=== PATIENT | female | born 1955 | race Caucasian/White ===

== ENCOUNTER 2018-08-08 13:49 | Emergency (ER) | payer BC ==
--- NOTE | 2018-08-08 13:55 | PDOC ---
Rapid Medical Evaluation Time Seen by Provider: 08/08/18 13:54 Medical Evaluation: 08/08/18 13:54 I have performed a brief in-person evaluation of this patient. The patient presents with a chief complaint of: N/V since this morning, "ear has been clogged", feeling dizzy Pertinent physical exam findings: no focal neuro deficits I have ordered the following: labs The patient will proceed to the ED for further evaluation.
[2018-08-08 13:58] VITALS: TEMP 98; BMI 32.3
[2018-08-08] MEDS ORDERED: ONDANSETRON 4 MG/2 ML VIAL IVPUSH ONE (15:50)
[2018-08-08] MEDS ORDERED: MECLIZINE HCL 25 MG TABLET (FP) PO ONE (15:50)
[2018-08-08] MEDS ORDERED: SODIUM CHLORIDE 1,000 ML IV STA (15:50)
[2018-08-08] MEDS ORDERED: ONDANSETRON 4 MG/2 ML VIAL ONE (16:36)
[2018-08-08] MEDS ORDERED: MECLIZINE HCL 25 MG TABLET (FP) ONE (16:36)
[2018-08-08 16:43] LABS: BASO % 0.1 % (0-2.0); HEMATOCRIT 47.1 % (32.4-45.2); HEMOGLOBIN 15.2 GM/dL (10.7-15.3); LYMPH % 12.3 % (8-40); MCH 28.8 pg (25.7-33.7); MCHC 32.2 g/dl (32.0-36.0); MEAN CELL VOLUME 89.7 fl (80-96); MEAN PLT VOLUME 8.5 fl (7.5-11.1); MONO % 3.3 % (3.8-10.2); NEUT % 84.3 % (42.8-82.8); PLATELET COUNT 224 K/MM3 (134-434); RBC 5.25 M/mm3 (3.60-5.2); RDW 14.3 % (11.6-15.6); WHITE BLOOD COUNT 8.7 K/mm3 (4.0-10.0)
[2018-08-08 17:14] LABS: ALBUMIN 4.1 g/dl (3.4-5.0); BILIRUBIN,TOTAL 0.5 mg/dL (0.2-1); CALCIUM 9.5 mg/dL (8.5-10.1); CREATININE 0.7 mg/dL (0.55-1.3); POTASSIUM 4.2 mmol/L (3.5-5.1); TOT PROT 7.6 g/dl (6.4-8.2)
[2018-08-08] MEDS ORDERED: MECLIZINE HCL 12.5 MG TABLET PO ONE (18:21)
[2018-08-08] MEDS ORDERED: MECLIZINE HCL 12.5 MG TABLET ONE (18:24)
--- NOTE | 2018-08-08 18:27 | PDOC ---
History of Present Illness - General Chief Complaint: Nausea/Vomiting Stated Complaint: NAUSEA/VOMITING Time Seen by Provider: 08/08/18 13:54 History Source: Patient Exam Limitations: No Limitations - History of Present Illness Initial Comments: 08/08/18 17:21 63-year-old female presents to ED with complaints of intermittent dizziness upon awakening this morning. Patient states feels as if her right ear is clogged and did see an ENT specialist about 2 months ago who stated she likely had mild sinusitis and to take nasal decongestions. Patient states has been off the medication for about 1 month but has had intermittent dizziness upon standing but not to this severity until this morning. Patient denies headache, visual changes but states when she stands up she feels if the room is spinning and has to hold onto furniture. Patient has no complaints of chest pain, neck pain, shortness of breath fever, chills but states positive nausea since this afternoon Timing/Duration: reports: increasing Severity: Yes: moderate Associated Symptoms: reports: nausea/vomiting, trouble walking Past History - Travel Traveled outside of the country in the last 30 days: No Close contact w/someone who was outside of country & ill: No - Past Medical History Allergies/Adverse Reactions: Allergies Allergy/AdvReac Type Severity Reaction Status Date / Time No Known Allergies Allergy Verified 08/08/18 13:57 COPD: No - Suicide/Smoking/Psychosocial Hx Smoking History: Unknown if ever smoked Have you smoked in the past 12 months: No Information on smoking cessation initiated: No Hx Alcohol Use: No Drug/Substance Use Hx: No Patient Lives Alone: No Lives with/in: children Review of Systems - Review of Systems Able to Perform ROS?: Yes Constitutional: No: Symptoms Reported HEENTM: No: Symptoms Reported Respiratory: No: Symptoms reported Cardiac (ROS): Yes: Lightheadedness ABD/GI: Yes: Nausea, Vomiting : No: Symptoms Reported Integumentary: No: Symptoms Reported Neurological: Yes: Dizziness. No: Weakness Endocrine: No: Symptoms Reported Hematologic/Lymphatic: No: Symptoms Reported *Physical Exam - Vital Signs Last Vital Signs Temp Pulse Resp BP Pulse Ox 98.0 F 77 16 139/86 100 08/08/18 13:55 08/08/18 13:55 08/08/18 13:55 08/08/18 13:55 08/08/18 13:55 - Physical Exam General Appearance: Yes: Nourished, Appropriately Dressed. No: Apparent Distress HEENT: positive: EOMI, MONET, TMs Normal (left. Right completely occluded with hard yellowish cerumen), Pharynx Normal. negative: Pale Conjunctivae Neck: positive: Normal Thyroid, Supple Respiratory/Chest: positive: Lungs Clear, Normal Breath Sounds. negative: Respiratory Distress, Accessory Muscle Use Cardiovascular: positive: Regular Rhythm, Regular Rate. negative: Murmur Gastrointestinal/Abdominal: positive: Soft. negative: Tenderness Integumentary: positive: Normal Color, Warm, Moist Neurologic: positive: Motor Strength 5/5 (ambulatory), Other ( unable to perform Hallpike secondary to subjective dizziness with movement). negative: Sensory Deficit Heart Score/ECG Review - ECG Intrepretation Rhythm: Regular Rhythm (rate 69. nsr) ED Treatment Course - LABORATORY CBC & Chemistry Diagram: 08/08/18 16:22 08/08/18 16:22 - ADDITIONAL ORDERS Additional order review: Laboratory Results 08/08/18 16:22 Sodium 141 Potassium 4.2 Chloride 107 Carbon Dioxide 26 Anion Gap 8 BUN 15 Creatinine 0.7 Est GFR (CKD-EPI)AfAm 108.38 Est GFR (CKD-EPI)NonAf 93.51 Random Glucose 127 H Calcium 9.5 Total Bilirubin 0.5 AST 19 ALT 27 Alkaline Phosphatase 96 Total Protein 7.6 Albumin 4.1 Lipase 94 08/08/18 16:22 RBC 5.25 H MCV 89.7 MCHC 32.2 RDW 14.3 MPV 8.5 Neutrophils % 84.3 H Lymphocytes % 12.3 Monocytes % 3.3 L Eosinophils % 0.0 Basophils % 0.1 - RADIOLOGY Radiology Studies Ordered: Category Date Time Status HEAD CT WITHOUT CONTRAST [CT] Stat CT Scan 08/08/18 15:50 Completed - Medications Given in the ED: ED Medications Discontinued Medications Generic Name Dose Route Start Last Admin Trade Name Freq PRN Reason Stop Dose Admin Sodium Chloride 1,000 mls @ 1,000 mls/hr 08/08/18 15:50 08/08/18 16:30 Normal Saline - IV 08/08/18 16:49 1,000 mls/hr ASDIR STA Administration Meclizine HCl 25 mg 08/08/18 15:50 08/08/18 16:30 Antivert - PO 08/08/18 15:51 25 mg ONCE ONE Administration Ondansetron HCl 4 mg 08/08/18 15:50 08/08/18 16:30 Zofran Injection IVPUSH 08/08/18 15:51 4 mg ONCE ONE Administration Medical Decision Making - Medical Decision Making 08/08/18 17:25 Chief complaint: Dizziness upon awakening this morning worsened with movement and standing now with nausea since this afternoon patient denies history of vertigo but states feels as if right ear is clogged. Exam: Patient with retching upon my arrival. Patient unable to perform Hallpike secondary to subjective dizziness with movement. cerumen occluded rt tm Plan: Labs, urine, EKG and head CT along meclizine Zofran and IV fluids 08/08/18 18:28 Laboratory Tests 08/08/18 08/08/18 16:22 16:22 WBC 8.7 Hgb 15.2 Hct 47.1 H Neutrophils % 84.3 H Sodium 141 Potassium 4.2 Chloride 107 Carbon Dioxide 26 Anion Gap 8 BUN 15 Creatinine 0.7 Est GFR (CKD-EPI)AfAm 108.38 Est GFR (CKD-EPI)NonAf 93.51 Random Glucose 127 H Calcium 9.5 Total Bilirubin 0.5 AST 19 ALT 27 Alkaline Phosphatase 96 Total Protein 7.6 Albumin 4.1 Lipase 94 Patient states no nausea and states moderate improvement of dizziness. Patient ambulated to the bathroom with assistance. Will give another dose of meclizine along with discharged with meclizine and Debrox for cerumen removal *DC/Admit/Observation/Transfer Diagnosis at time of Disposition: Dizziness - Discharge Dispostion Disposition: HOME Condition at time of disposition: Improved - Referrals - Patient Instructions Printed Discharge Instructions: DI for Dizziness-Nonvertigo, DI for Cerumen Impaction Additional Instructions: Please use medication for your ear as prescribed to loosen up wax. Take meclizine as needed for dizziness. If symptoms do not improve over the next few days please return to the ED. Also get up and increments when lying down to standing to decrease the dizziness. I have read your PPD to your left forearm which was negative - Post Discharge Activity
[2018-08-08 19:04] VITALS: BP 137/87; PULSE 78
--- NOTE | 2018-08-09 13:36 | EKG ---
Test Reason : Blood Pressure : / mmHG Vent. Rate : 084 BPM Atrial Rate : 084 BPM P-R Int : 154 ms QRS Dur : 082 ms QT Int : 382 ms P-R-T Axes : 059 052 042 degrees QTc Int : 451 ms POOR DATA QUALITY, INTERPRETATION MAY BE ADVERSELY AFFECTED NORMAL SINUS RHYTHM POSSIBLE LEFT ATRIAL ENLARGEMENT NONSPECIFIC T WAVE ABNORMALITY ABNORMAL ECG WHEN COMPARED WITH ECG OF 29-JUL-2002 11:26, NO SIGNIFICANT CHANGE WAS FOUND Confirmed by JOSH ORELLANA MD ([id number]) on 08/09/2018 1:35:45 PM Referred By: Confirmed By:JOSH ORELLANA MD
== END 2018-08-08 19:03 | disposition home or self-care (01) ==
LOC: JER 13:49
PROC: 3E033GC Introduction of Other Therapeutic Substance into Peripheral Vein, Percutaneous Approach (ICD-10-PCS; principal; 2018-08-08)
DX: R42 Dizziness and giddiness (principal); H61.21 Impacted cerumen, right ear
CPT/HCPCS: 36415; 70450-TC; 80053; 83690; 85025; 93005; 93010; 99283-25; J7030